=== PATIENT | female | born 1945 | race Caucasian/White ===

== ENCOUNTER 2016-12-06 16:39 | Emergency (ER) | payer OTHER ==
[~2016-12-06] VITALS: Ht 157.5 cm; Wt 79.5 kg
[~2016-12-06 16:39] MED LIST: DICLOFENAC SODI75 MG PO; HYDROCODON-ACE1 EAC8 PO; LISINOPRIL5 MG PO; LOTREL 5/101 CAPSULE PO; LYRICA100 MG PO; NORVASC10 MG PO; OXYCONTIN10 MG PO; OXYCONTIN20 MG PO; PEPCID40 MG PO; PREDNISONE20 MG PO; TRILEPTAL150 MG PO; VICODIN,LORT1 TABLET PO
[2016-12-06 18:07] LABS: HEMATOCRIT 39.8 % (36.0-46.0); MCHC 33.7 G/DL (30.0-36.0); MEAN PLAT.VOLUME 9.8 uM^3 (9.5-12.4); PLATELET COUNT 169 K/uL (156-360); RBC DIS.WIDTH-CV 13.4 % (11.8-14.6); RBC DIS.WIDTH-SD 42.8 % (39-53); RED BLOOD COUNT 4.47 M/uL (3.80-5.20); WHITE BLOOD COUNT 4.7 K/uL (4.1-10.2)
[2016-12-06 18:19] LABS: CHLORIDE 106 mEq/L (99-109); POTASSIUM 4.2 mEq/L (3.7-5.4); SODIUM 141 mEq/L (136-147)
[2016-12-06 18:20] LABS: GLUCOSE 110 mg/dL (70-99)
[2016-12-06 18:22] LABS: ANION GAP 10 MEQ/L (2-14)
[2016-12-06 18:24] LABS: GFR ESTIMATE (CALCULATED) > 59 mL/min/
[2016-12-06 18:25] LABS: UREA NITROGEN (BUN) 9 mg/dL (9-23)
[2016-12-06 19:59] LABS: TROP-I INTERPRETATION NEGATIVE; TROPONIN-I 0.01 ng/mL (0.0-0.30)
[2016-12-06 20:04] LABS: ADD MIUA? YES; BILIRUBIN NEGATIVE; BLOOD SMALL; COLOR YELLOW ((YELLOW)); GLUCOSE (STRIP) NEGATIVE; KETONES 20; LEUKOCYTES TRACE; NITRITE NEGATIVE; PROTEIN (STRIP) NEGATIVE; SPECIFIC GRAVITY 1.009 (1.000-1.030); UROBILINOGEN 0.2 MG/DL (0.2-1.0)
[2016-12-06 20:05] LABS: ALKALINE PHOSPHATASE 78 IU/L (3-129); DIRECT BILIRUBIN 0.2 mg/dL (0.0-0.3); TOTAL BILIRUBIN 1.2 MG/DL (0.0-1.0)
[2016-12-06 20:12] LABS: BACTERIA NONE SEEN /HPF; EPITHELIAL CELLS RARE /HPF; MUCUS TRACE /LPF; RED BLOOD CELLS 0-5 /HPF (0-5); UCUL ADDED? NO
[2016-12-06 23:17] VITALS: BP 142/73
== END 2016-12-06 23:19 | disposition home or self-care (01) ==
LOC: EME 16:39
PROVIDERS: Emergency Medicine; Physician Assistant
DX: R53.1 Weakness (principal); E86.0 Dehydration; R00.2 Palpitations; R00.0 Tachycardia, unspecified; R11.0 Nausea; R26.2 Difficulty in walking, not elsewhere classified; I10 Essential (primary) hypertension; G89.29 Other chronic pain; Z79.891 Long term (current) use of opiate analgesic; Z87.891 Personal history of nicotine dependence
CPT/HCPCS: 71020; 80048; 80076; 81003; 84443; 84484; 85027; 93005; 99281; 99285; J7030

== ENCOUNTER 2016-12-11 09:18 | Emergency (ER) | payer OTHER ==
[~2016-12-11] VITALS: Ht 157.5 cm; Wt 78.0 kg
[2016-12-11 10:25] LABS: MCH 29.5 PG (29.0-34.0); MCHC 33.6 G/DL (30.0-36.0); MCV 87.8 FL (83-99); MEAN PLAT.VOLUME 9.2 uM^3 (9.5-12.4); RBC DIS.WIDTH-CV 12.8 % (11.8-14.6); RBC DIS.WIDTH-SD 41.5 % (39-53); RED BLOOD COUNT 5.01 M/uL (3.80-5.20); WHITE BLOOD COUNT 4.9 K/uL (4.1-10.2)
[2016-12-11 10:29] LABS: PLATELET COUNT 288 K/uL (156-360)
[2016-12-11 10:38] LABS: CHLORIDE 103 mEq/L (99-109); POTASSIUM 3.6 mEq/L (3.7-5.4); SODIUM 141 mEq/L (136-147)
[2016-12-11 10:39] LABS: GLUCOSE 104 mg/dL (70-99)
[2016-12-11 10:43] LABS: ANION GAP 14 MEQ/L (2-14); GFR ESTIMATE (CALCULATED) > 59 mL/min/
[2016-12-11 10:44] LABS: UREA NITROGEN (BUN) 8 mg/dL (9-23)
[2016-12-11 10:46] LABS: TROP-I INTERPRETATION NEGATIVE; TROPONIN-I < 0.01 ng/mL (0.0-0.30)
[2016-12-11 10:52] LABS: D-DIMER ELISA 0.43 mg/L FEU (< 0.57)
[2016-12-11 12:48] LABS: ADD MIUA? YES; BILIRUBIN NEGATIVE; BLOOD SMALL; COLOR YELLOW ((YELLOW)); GLUCOSE (STRIP) NEGATIVE; KETONES 80; LEUKOCYTES LARGE; NITRITE POSITIVE; PROTEIN (STRIP) 30; SPECIFIC GRAVITY 1.015 (1.000-1.030); UROBILINOGEN 0.2 MG/DL (0.2-1.0)
[2016-12-11 13:02] LABS: BACTERIA RARE /HPF; EPITHELIAL CELLS 1+ /HPF; MUCUS 4+ /LPF; RED BLOOD CELLS 15-20 /HPF (0-5); UCUL ADDED? YES; WHITE BLOOD CELLS TNTC /HPF (0-5)
[2016-12-11] MEDS ORDERED: BACTRIM,SEPT1 TABLET PO (14:01)
[2016-12-11 14:35] VITALS: BP 155/94
== END 2016-12-11 14:36 | disposition home or self-care (01) ==
LOC: EME 09:18
PROVIDERS: Emergency Medicine
DX: N39.0 Urinary tract infection, site not specified (principal); R00.2 Palpitations; I10 Essential (primary) hypertension; G89.29 Other chronic pain; Z85.3 Personal history of malignant neoplasm of breast; Z87.891 Personal history of nicotine dependence
CPT/HCPCS: 71020; 80048; 81003; 84484; 85027; 85379; 87077; 87086; 87186; 87502; 93005; 99281; 99284

== ENCOUNTER 2017-01-05 14:33 | Emergency (ER) | payer OTHER ==
[~2017-01-05] VITALS: Ht 157.5 cm; Wt 77.7 kg
[~2017-01-05 14:33] MED LIST changes: +BACTRIM,SEPT1 TABLET PO
[2017-01-05 15:19] LABS: HEMATOCRIT 43.2 % (36.0-46.0); MCH 29.9 PG (29.0-34.0); MCHC 32.9 G/DL (30.0-36.0); MCV 90.9 FL (83-99); MEAN PLAT.VOLUME 9.9 uM^3 (9.5-12.4); PLATELET COUNT 227 K/uL (156-360); RBC DIS.WIDTH-CV 13.7 % (11.8-14.6); RBC DIS.WIDTH-SD 46.1 % (39-53); RED BLOOD COUNT 4.75 M/uL (3.80-5.20); WHITE BLOOD COUNT 7.7 K/uL (4.1-10.2)
[2017-01-05 15:25] LABS: ADD MIUA? YES; BILIRUBIN NEGATIVE; BLOOD NEGATIVE; COLOR STRAW ((YELLOW)); GLUCOSE (STRIP) NEGATIVE; KETONES NEGATIVE; LEUKOCYTES TRACE; NITRITE NEGATIVE; PROTEIN (STRIP) NEGATIVE; SPECIFIC GRAVITY 1.003 (1.000-1.030); UROBILINOGEN 0.2 MG/DL (0.2-1.0)
[2017-01-05 15:28] LABS: CHLORIDE 105 mEq/L (99-109); SODIUM 140 mEq/L (136-147)
[2017-01-05 15:31] LABS: GLUCOSE 100 mg/dL (70-99)
[2017-01-05 15:32] LABS: ANION GAP 11 MEQ/L (2-14)
[2017-01-05 15:33] LABS: TOTAL BILIRUBIN 1.2 mg/dL (0.0-1.0)
[2017-01-05 15:34] LABS: ALKALINE PHOSPHATASE 79 IU/L (3-129); GFR ESTIMATE (CALCULATED) > 59 mL/min/; POTASSIUM 3.6 mEq/L (3.7-5.4)
[2017-01-05 15:34] LABS: C DIFF TOXIN ND (NEGATIVE)
[2017-01-05 15:35] LABS: UREA NITROGEN (BUN) 9 mg/dL (9-23)
[2017-01-05 15:35] LABS: BACTERIA RARE /HPF; EPITHELIAL CELLS RARE /HPF; MUCUS NONE SEEN /LPF; RED BLOOD CELLS 0-5 /HPF (0-5); WHITE BLOOD CELLS 0-5 /HPF (0-5)
[2017-01-05 15:38] LABS: LIPASE 16 U/L (1.0-51.0)
[2017-01-05 17:05] LABS: TROP-I INTERPRETATION NEGATIVE; TROPONIN-I < 0.01 ng/mL (0.0-0.30)
[2017-01-05 18:55] VITALS: BP 107/65
== END 2017-01-05 19:06 | disposition home or self-care (01) ==
LOC: EME 14:33
PROVIDERS: Nurse Practitioner Family
DX: R53.1 Weakness (principal); A04.7 Enterocolitis due to Clostridium difficile; G89.29 Other chronic pain; I10 Essential (primary) hypertension; Z85.3 Personal history of malignant neoplasm of breast; Z96.641 Presence of right artificial hip joint; Z87.891 Personal history of nicotine dependence
CPT/HCPCS: 80053; 81003; 83690; 84484; 85027; 87493; 93005; 99281; 99285; J7030